=== PATIENT | female | born 1950 | race Caucasian/White ===

== ENCOUNTER 2021-03-18 14:00 | Outpatient (RCR) | payer MEDICARE, OTHER, SELFPAY | END 2021-05-10 14:17 | disposition home or self-care (01) | LOC: HO.PT 14:00 | PROVIDERS: Visit Provider Internal Medicine | DX: N39.3 Stress incontinence (female) (male) (principal) | CPT/HCPCS: 97112; 97162; 97530 ==

== ENCOUNTER 2021-09-09 10:00 | Outpatient (RCR) | payer MEDICARE, OTHER, SELFPAY | END 2021-09-09 11:52 | disposition home or self-care (01) | LOC: HO.PT 10:00 | PROVIDERS: Visit Provider Internal Medicine | DX: N39.3 Stress incontinence (female) (male) (principal) | CPT/HCPCS: 97112; 97140; 97162; 97530 ==